=== PATIENT | female | born 1950 | race Caucasian/White ===

== ENCOUNTER → 2019-03-14 | Outpatient (CLI) | payer OTHER ==
[2019-03-14 07:50] LABS: HEMATOCRIT 33.5 % (37.0-47.0); HEMOGLOBIN 11.1 gm/dL (12.0-15.0); MCH 27.4 pg (26.0-34.0); MCHC 33.2 g/dL (28.0-37.0); MCV 82.7 fL (80.0-100.0); RBC 4.05 mil/uL (4.20-5.00); RDW 15.6 % (10.5-14.5); WBC 7.1 thou/uL (4.0-11.0)
[2019-03-14 08:00] LABS: ALBUMIN 3.2 g/dL (3.4-5.0); CALCIUM 8.5 mg/dL (8.5-10.1); CREATININE 1.6 mg/dL (0.6-1.0); POTASSIUM 4.5 mmol/L (3.5-5.1); TOTAL BILIRUBIN 0.6 mg/dL (<0.1-1.0); TOTAL PROTEIN 6.2 g/dL (6.4-8.2)
== END ==
LOC: CAT 07:19
PROVIDERS: Internal Medicine Cardiovascular Disease
DX: Z01.818 Encounter for other preprocedural examination (principal); I48.91 Unspecified atrial fibrillation; I25.10 Atherosclerotic heart disease of native coronary artery without angina pectoris; M47.814 Spondylosis without myelopathy or radiculopathy, thoracic region

== ENCOUNTER 2019-03-18 06:36 | Observation (INO) | payer OTHER ==
[~2019-03-18] VITALS: Ht 165.1 cm; Wt 100.8 kg
[~2019-03-18 06:36] MED LIST: AMLODIPINE BESY10 MG PO; ASPIR 8181 M1 PO; COREG6.25 MG PO; ELIQUIS5 MG PO; LASIX 40 MG TAB40 M2 PO; LIPITOR80 MG PO; PACERONE 200 M200 M1 PO; PACERONE200 MG PO
[2019-03-18 07:31] VITALS: BP 159/50
[2019-03-18 07:32] LABS: ABSOLUTE NEUTROPHILS 7.1 thou/uL (1.4-8.2); BASOPHILS 1.1 % (0.0-2.0); EOSINOPHILS 1.2 % (0.0-3.0); HEMATOCRIT 39.1 % (37.0-47.0); HEMOGLOBIN 12.8 gm/dL (12.0-15.0); LYMPHOCYTES 10.9 % (24.0-44.0); MCH 27.2 pg (26.0-34.0); MCHC 32.8 g/dL (28.0-37.0); MCV 82.9 fL (80.0-100.0); MONOCYTES 7.1 % (1.0-8.0); PLATELET COUNT 216 thou/uL (150-400); POLYS 79.7 % (36.0-66.0); RBC 4.71 mil/uL (4.20-5.00); RDW 15.9 % (10.5-14.5); WBC 8.8 thou/uL (4.0-11.0)
[2019-03-18 07:37] LABS: CALCIUM 9.2 mg/dL (8.5-10.1); CREATININE 1.4 mg/dL (0.6-1.0)
[2019-03-18 07:42] LABS: APTT 23.6 Seconds (24.5-32.8); PROTIME 10.2 Seconds (9.3-11.4)
[2019-03-18 07:44] LABS: ALBUMIN 3.5 g/dL (3.4-5.0); TOTAL BILIRUBIN 0.7 mg/dL (<0.1-1.0); TOTAL PROTEIN 7.3 g/dL (6.4-8.2)
[2019-03-18] MEDS ORDERED: HYDRALAZINE 2525 MG PO (07:49)
[2019-03-18] MEDS ORDERED: IMDUR 60 MG TAB60 M1 PO (07:51)
[2019-03-18] MEDS ORDERED: LEVEMIR SUBQ (07:51)
[2019-03-18] MEDS ORDERED: OMEPRAZOLE40 MG PO (07:52)
[2019-03-18 16:00] VITALS: BP 149/70
--- NOTE | 2019-03-18 19:37 | NUR ---
ASSUMED CARE OF PT AT 1315 FOLLOWING ABLATION PROCEDURE. PT WAS ALERT AND ORIENTED X4 AND REPORTED NO PAIN, BUT ONLY SLIGHT NEUROPATHY IN THE RIGHT FOOT. PT REPORTED A DRY MOUTH AND A NONPRODUCTIVE COUGH. 02 SAT FOR FIRST 30 MINUTES POST PROCEDURE WERE IN THE LOW 90S, BUT INCREASED TO UPPER 90S WITHIN 45 MINUTES AFTER ASSUMING CARE. PT WAS UP WITH ASSIST AT 1800 AND CORRALES WAS DISCONTINUED. DRESSING ON RIGHT GROIN PUNCTURE SITE WAS CHANGED DUE TO MINIMAL SEROUS DRAINAGE COMING FROM SITE. BRUISING WAS NOTED AROUND PUNCTURE SITE WHEN PT ARRIVED ON UNIT BUT DID NOT INCREASE IN DIAMETER. NO HEMATOMA NOTED AT RIGHT GROIN SITE.
--- NOTE | 2019-03-18 19:45 | NUR ---
I have reviewed the documentation by CARITO ROPER, [employer] [facility] [employer], from 699 to 1944 and I concur with it. DAGOBERTO CORTES, RN
[2019-03-18 19:54] VITALS: BP 131/54
[2019-03-19 00:09] VITALS: BP 129/52
[2019-03-19 04:55] VITALS: BP 133/53
[2019-03-19 05:11] LABS: ALBUMIN 2.7 g/dL (3.4-5.0); CALCIUM 8.4 mg/dL (8.5-10.1); CREATININE 1.5 mg/dL (0.6-1.0); POTASSIUM 4.5 mmol/L (3.5-5.1); TOTAL BILIRUBIN 0.4 mg/dL (<0.1-1.0); TOTAL PROTEIN 5.8 g/dL (6.4-8.2)
--- NOTE | 2019-03-19 05:33 | NUR ---
ASSUME CARE 1900. PT/VITALS STABLE. DENIES ANY PAIN. UP AD NATHANAEL. ASSESSMENT CHARTED. PROGRESSING WELL WITH POC. ADEQUATE REST NOTED THROUGH THE NIGHT. SR ON MONITOR THROUGHOUT SHIFT. PLAN IS POSSIBLE DISCHARGE HOME TODAY. SITE CDI. WILL CONITNUE TO MONITOR AND FOLLOW WITH POC
[2019-03-19 07:05] VITALS: BP 129/68
[2019-03-19 09:12] VITALS: BP 129/68
--- NOTE | 2019-03-19 14:45 | NUR ---
ASSUMED CARE OF PT AT 0700. PT A&OX4, UP AD NATHANAEL. PT WAS SINUS RHYTYM ON TELEMETRY AND VITAL SIGNS WITHIN NORMAL LIMITS. PT SEEN BY JOSUE AND DISCHARGE ORDERS RECEIVED. GROIN SITE HAD SEROUS DRAINAGE AND DRESSING CHANGED. PT AND SPOUSE COMMUNICATED UNDERSTANDING OF ALL DISCHARGE ORDERS, MEDS AND FOLLOW UP APPTS. PT STATED SHE HAD ALL BELONGINGS. IV AND TELEMETRY REMOVED.
== END 2019-03-19 10:47 | disposition home or self-care (01) ==
LOC: CATH 06:36 → 2N 13:44
PROVIDERS: Nurse Practitioner; ADMIT Internal Medicine Cardiovascular Disease
DX: I48.0 Paroxysmal atrial fibrillation (principal); E11.9 Type 2 diabetes mellitus without complications; I11.9 Hypertensive heart disease without heart failure; Z88.8 Allergy status to other drugs, medicaments and biological substances; Z90.49 Acquired absence of other specified parts of digestive tract; Z98.890 Other specified postprocedural states
CPT/HCPCS: 62110; 62900; 65020; 65040; 65090; 70005